=== PATIENT | male | born 1980 | race Caucasian/White ===

== ENCOUNTER 2021-12-31 13:01 | Emergency (ER) | payer OTHER ==
[2021-12-31] MEDS ORDERED: ceFAZolin 1 GM Vial IM ONE (13:23)
[2021-12-31] MEDS ORDERED: Bacitracin Oint 1 GM U/D Packet TOP ONE (13:24)
[2021-12-31] MEDS ORDERED: fentaNYL 50 MCG/ML SDV IVPUSH ONE (13:24)
[2021-12-31] MEDS ORDERED: Water For Injection, Sterile 20 ML ONE (13:31)
[2021-12-31] MEDS ORDERED: Lactated Ringers 1,000 ML IV ONE (13:42)
[2021-12-31] MEDS ORDERED: Bacitracin Oint 28.35 GM Tube TOP ONE (14:00)
== END 2021-12-31 15:15 | disposition home or self-care (01) ==
LOC: JP.ED 13:01
DX: T24.292A Burn of second degree of multiple sites of left lower limb, except ankle and foot, initial encounter (principal); E10.9 Type 1 diabetes mellitus without complications; Z91.012 Allergy to eggs; Z79.899 Other long term (current) drug therapy; Z79.4 Long term (current) use of insulin
CPT/HCPCS: 36415; 80048; 85025; 96372; 96374; 99283; A9270; J0690; J3010; J7120; 16020